=== PATIENT | female | born 1995 | race Caucasian/White ===

== ENCOUNTER 2025-01-17 14:07 | Outpatient (RCR) | payer MEDICAID, SELFPAY ==
--- NOTE | 2025-01-10 14:13 | XR_ITS ---
Examination: Biophysical profile, ultrasound Date and time of exam: January 10, 2025 1420 hours INDICATIONS: Diagnosis maternal obesity Technique: Multiple transabdominal sonographic images of the pelvis abdomen obtained. Attention is directed to the breathing movement, gross body movement, amniotic fluid volume and tone. Findings: Amniotic fluid index 11.3 cm Total biophysical profile is 8 of 8. breathing movement is 2. Gross body movement is 2. tone is 2. Qualitative amniotic fluid volume is 2 Impression: Biophysical profile is 8 of 8.
[2025-01-10 14:40] VITALS: BP 137/91; PULSE 100; RESP 16; TEMP 36.8
--- NOTE | 2025-01-17 14:12 | XR_ITS ---
Examination: Biophysical profile, ultrasound Date and time of exam: January 17, 2025 1419 hours INDICATIONS: Diagnosis maternal obesity Technique: Multiple transabdominal sonographic images of the pelvis abdomen obtained. Attention is directed to the breathing movement, gross body movement, amniotic fluid volume and tone. Findings: Amniotic fluid index 5.9 cm Total biophysical profile is 8 of 8. breathing movement is 2. Gross body movement is 2. tone is 2. Qualitative amniotic fluid volume is 2 Impression: Biophysical profile is 8 of 8.
[2025-01-17 15:03] VITALS: BP 131/73; PULSE 94; RESP 16; TEMP 36.7
== END 2025-01-17 23:59 | disposition home or self-care (01) ==
LOC: S4S1 14:07
PROVIDERS: PCP Family Medicine; Referring Provider Advanced Practice Midwife; Visit Provider Advanced Practice Midwife
DX: O99.213 Obesity complicating pregnancy, third trimester (principal); O09.93 Supervision of high risk pregnancy, unspecified, third trimester; E66.9 Obesity, unspecified; Z3A.38 38 weeks gestation of pregnancy
CPT/HCPCS: 59025; 76819

== ENCOUNTER 2025-01-19 08:07 | Observation (INO) | payer MEDICAID, SELFPAY ==
[2025-01-19] VITALS (10 sets, daily range): BP systolic 132–144; BP diastolic 74–84; PULSE 92–109; RESP 18–98; TEMP 36.6; O2SAT 97–98; BMI 51.0
--- NOTE | 2025-01-19 08:34 | XR_ITS ---
Examination: age Limited TECHNIQUE: Limited transabdominal sonographic images pelvis Exam date and time: January 19, 2025 1032 hours INDICATIONS: Amniotic fluid index 5.9 cm on ultrasound January 17, 2025 FINDINGS: Amniotic fluid index 6.1 cm Cardiac motion 150 BPM IMPRESSION: Amniotic fluid index 6.1 cm
== END 2025-01-19 11:09 | disposition home or self-care (01) ==
PROVIDERS: Admitting Provider Student in an Organized Health Care Education/Training Program; Visit Provider Student in an Organized Health Care Education/Training Program
DX: Z34.03 Encounter for supervision of normal first pregnancy, third trimester (principal); Z3A.38 38 weeks gestation of pregnancy
CPT/HCPCS: 59025; 59899; 76815

== ENCOUNTER 2025-01-27 07:53 | Outpatient (CLI) | payer SELFPAY ==
[2025-01-27 07:59] VITALS: BP 130/77; PULSE 91
[2025-01-27 08:15] VITALS: BP 130/77; PULSE 91; RESP 18; RESP 98; TEMP 36.5
[2025-01-27 08:16] VITALS: BMI 51.3
== END 2025-01-27 08:30 | disposition home or self-care (01) ==
LOC: S4S1 07:53 → S4SX 07:54
PROVIDERS: Referring Provider Obstetrics & Gynecology; Visit Provider Obstetrics & Gynecology
DX: Z34.03 Encounter for supervision of normal first pregnancy, third trimester (principal); Z36.9 Encounter for antenatal screening, unspecified; Z3A.39 39 weeks gestation of pregnancy
CPT/HCPCS: 59025

== ENCOUNTER 2025-01-31 10:55 | Inpatient (IN) | payer MEDICAID, SELFPAY ==
[2025-01-31] VITALS (44 sets, daily range): BP systolic 122–139; BP diastolic 63–83; PULSE 74–122; RESP 18; TEMP 36.6–36.7; O2SAT 94–100; BMI 55.5
[2025-01-31 12:11] LABS: Basophils % (Auto) 0 % (0-2.5); Eosinophils # (Auto) 0.1 Thou/mm3 (0.0-0.5); Eosinophils % (Auto) 1 % (0-10); Hematocrit 35.7 % (36.0-46.0); Hemoglobin 12.1 g/dL (12.0-16.0); Immature Granulocytes % (Auto) 1 % (0-0); Immature Granulocytes Auto 0.11 Thou/mm3 (0.00-0.00); Lymphocytes # (Auto) 1.7 Thou/mm3 (1.0-4.8); Lymphocytes % (Auto) 16 % (10-50); Mean Corpuscular HGB Conc 33.9 g/dl (31.0-37.0); Mean Corpuscular Hemoglobin 30.2 pg (25.0-35.0); Mean Corpuscular Volume 89 fL (80-100); Monocytes # (Auto) 0.3 Thou/mm3 (0.0-0.8); Monocytes % (Auto) 3 % (0-12); Neutrophils # (Auto) 8.4 Thou/mm3 (1.8-7.7); Neutrophils % (Auto) 79 % (37-80); Nucleated Red Blood Cell % 0 /100 WBC (0); Platelet Count 208 Thou/mm3 (140-440); RDW Standard Deviation 47.4 fL (36.4-46.3); Red Blood Count 4.01 Miln/mm3 (4.00-5.20); White Blood Count 10.7 Thou/mm3 (3.6-11.0)
[2025-01-31] MEDS: MISOPROSTOL 50 mCg TABLET 25 MCG VAGINAL (12:23)
[2025-01-31 12:49] LABS: Syphilis Nonreactive (Nonreactive)
--- NOTE | 2025-01-31 14:41 | ESHP_ITS ---
Documentation for date of: 01/31/25 OB Labor/Induct. HPI History of Present Illness Chief complaint: presents for IOL for elevated BMI : 1 Para: 0 Term pregnancies: 0 pregnancies: 0 Living children: 0 History of Abortions: Spontaneous and Elective: 0 History of Vaginal deliveries: 0 History of sections: No ART: 01/29/25 Gestational Age (weeks): 40 Gestational Age (days): 2 Indication for induction: other (elevated BMI) History of present illness: Meme is a 29yo G1 at 40w2d presenting for induction of labor due to elevated BMI of 49, as recommended by M. IOL was attempted 01/23 to 01/24 with cervidil and 4 doses of cytotec, but there was no progression and she elected to go home and try again today. Was given option for at that time and declined. She has no complaints today. No regular/painful ctx. No lof or vb. She notes normal movement. History of Present Dating criteria: based on 2nd trimester US only Adequate Care: No (Late to care at 20 weeks) Narrative: BMI 49 at initiation of care, taking ASA 81mg PO QD Late to care at 20 weeks 1hr glucola elevated (183), but only 1 elevation on 3hr GTT. HgbA1c 5.7. Anemia, Hgb 10.9 Hx of mild intermittent asthma, no meds currently Rubella non-immune GBS positive on urine Labs Maternal Blood Type: O Pos Labs: Positive: Group Beta Strep and Negative: RPR, Hepatitis B, Rubella Titre, HIV, Chlamydia and Gonorrhea Review of Systems Review of Systems Narrative Review of Systems: Review of Systems Systems Reviewed: All systems reviewed, normal except as documented Constitutional Constitutional: Denies body ache(s), Denies chills, Denies fever(s) and Denies headache(s) ENT Ears, Nose, Mouth, and Throat: Denies headache(s) and Denies vertigo Cardiovascular Cardiovascular: Denies chest pain, Denies palpitations, Denies dyspnea and Denies syncope Respiratory Respiratory: Denies cough, Denies dyspnea Gastrointestinal Gastrointestinal: Denies nausea and Denies vomiting Neurologic Neurologic: Denies convulsions, Denies headache(s), Denies other visual disturbances, Denies syncope and Denies vertigo Past Medical History Family History OTHER FAMILY HX: mother from breast cancer Surgical History SURGICAL: Negative Section Social History SOCIAL: No tobacco/ETOH/illicit drug use Past Medical History Comments PMH COMMENT: BMI 49 at initiation of care, HgbA1c 5.7. Hx of mild intermittent asthma, no meds currently Meds Home Medications and Allergies Home Medications ?Medication ?Instructions ?Recorded ?Confirmed ?Type ferrous sulfate 325 mg (65 mg 325 mg PO BID 01/19/25 0 01/31/25 History iron) tablet vit no.95-ferrous 1 tab PO DAILY 01/19/2506/19 History fumarate 28 mg-folic acid 800 mcg tablet () Allergies Allergy/AdvReac Type Severity Reaction Status Date / Time No Known Allergies Allergy Verified 01/31/25 11:37 OB Exam Physical Exam Vital signs: Temp Pulse Resp BP Pulse Ox 97.9 F 76 18 126/71 96 01/31/25 11:28 01/31/25 14:15 01/31/25 11:28 01/31/25 14:15 01/31/25 13:20 Narrative: General: well developed, well nourished, no acute distress, conversant Cardiac: normal heart rate Lungs: breathing without distress Abdomen: soft, gravid, obese, non-tender, no rebound or guarding Extremities: trace edema BLE Detailed Labor and Delivery Exam Dilation (cm): 1 Effacement (%): 0 Cervix position: posterior station: -3 Consistency: medium Presentation: Vertex Membranes: intact monitor accelerations: 15x15 monitor decelerations: None halfway variability: Moderate (11-25) Contraction frequency (min): no regular ctx pattern OB Results Labs 01/31/25 11:35 Labs: Short CBC 01/31/25 Range/Units 11:35 WBC 10.7 (3.6-11.0) Thou/mm3 Hgb 12.1 (12.0-16.0) g/dL Hct 35.7 L (36.0-46.0) % Plt Count 208 (140-440) Thou/mm3 OB Assessment & Plan Assessment and Plan (1) Encounter for induction of labor: Status: Acute Assessment and plan: Meme is a 29yo G1 at 40w2d presenting for induction of labor due to elevated BMI of 49, as recommended by [facility]. IOL was attempted 01/23 to 01/24 with cervidil and 4 doses of cytotec, but there was no progression and she elected to go home and try again today. Was given option for at that time and declined. SCE: 1/thick/-3, vertex. Membranes intact. Vitals wnl, benign exam. Reassuring assessment overall. Patient counseled on IOL methods and amenable to all. Cook see cervical balloon placed with 60cc NS in the intra-uterine balloon only and 25mcg cytotec placed PV. Well tolerated. care: She received care at [facility] with YANELI Razo and also saw [facility] records in chart reviewed. PMhx/PNC significant for: BMI 49 at initiation of care, taking ASA 81mg PO QD Late to care at 20 weeks 1hr glucola elevated (183), but only 1 elevation on 3hr GTT. HgbA1c 5.7. Anemia, Hgb 10.9 Hx of mild intermittent asthma, no meds currently Rubella non-immune GBS positive on urine Plan: -Admit to L&D -Establish IV, routine labs -CEFM -Regular diet [id number], then clear liquid diet in labor -Counseled/consented re: iol and -GBS status: positive. IV PCN per protocol once see bulb comes out. -Will await cervical see balloon falling out, repeat cytotec q4hr as contraction pattern allows -Anticipate -Safe to proceed Tawny Tinoco MD (2) BMI 50.0-59.9, adult: Status: Acute
[2025-01-31] MEDS: fentaNYL CIT INJ 50 mCg/ML AMP 2ML 100 MCG IV (17:29)
[2025-01-31] MEDS: RINGERS LACTATED 1000 ML 1,000 ML 100 ML IV (17:40)
[2025-01-31] MEDS: OXYTOCIN in NS 30 units 30 UNIT/500 ML BAG IV (18:49)
[2025-01-31] MEDS: DINOPROSTONE 10 MG VAG.SUPP VAGINAL (22:43)
[2025-02-01] VITALS (180 sets, daily range): BP systolic 111–161; BP diastolic 56–116; PULSE 80–125; RESP 14–20; TEMP 36.6–37.7; O2SAT 77–100
[2025-02-01] MEDS: fentaNYL CIT INJ 50 mCg/ML AMP 2ML 100 MCG IV ×2 (00:20→06:30)
[2025-02-01] MEDS: MISOPROSTOL 50 mCg TABLET 25 MCG VAGINAL (02:26)
--- NOTE | 2025-02-01 03:15 | PD.LDPN ---
Documentation for date of: 02/01/25 OB Labor Progress Note Pelvic Exam Dilation (cm): 4 Effacement (%): 50 station: -3 Amniotic membrane status: Intact Contractions Contraction frequency: irregular ctx Assessment and Plan Comments: Intrapartum Note Patient doing well, not feeling ctx strongly. Pitocin was started with cervical see balloon and titrated up to 3mu, but given need for further effacement, pitocin was stopped and cervidil placed. Cervidil came out on its own 3 hours after it was placed. Vitals wnl, afebrile Cat I FHRT Irregular ctx SCE: 50/-2, mid/soft. Cytotec 25mcg PV placed. Will re-check SCE in approx 4 hours and either re-dose cytotec vs re-initiate pitocin. Intermittent FHR monitoring per protocol Safe to proceed Tawny Tinoco MD
[2025-02-01] MEDS: Ampicillin Inj 2,000 MG in SODIUM CHLORIDE 0.9% (POP) 100 ML 200 MG IV (06:09)
[2025-02-01] MEDS: OXYTOCIN in NS 30 units 30 UNIT/500 ML BAG IV (07:30)
[2025-02-01] MEDS: RINGERS LACTATED 1000 ML 1,000 ML 100 ML IV ×3 (09:10→12:56)
[2025-02-01] MEDS: Ampicillin Inj 1,000 MG in SODIUM CHLORIDE 0.9% (Popper) 50 ML 50 MG IV ×3 (10:15→18:28)
--- NOTE | 2025-02-01 13:21 | ESPR_ITS ---
Documentation for date of: 02/01/25 OB Labor Progress Note Pelvic Exam Dilation (cm): 5 Effacement (%): 60 station: -3 Amniotic membrane status: Intact Contractions Monitor mode: Internal Contraction frequency: ctx q4-5 min Status status: Category l Assessment and Plan Comments: Intrapartum Note Meme recently received epidural. It was functioning really well initially and then she changed position and started feeling contractions strongly again. Pitocin at 3mu. During the re-positioning FSE connection was lost and when I went to see her, RN was trying a different cable to see if connection could be regained. Despite trying numerous things, could not get it to adequately function again, so I replaced the FSE. SCE: /-3. head is above the cervix, not well applied. Clear fluid. Plan to continue to titrate IV pitocin to adequate MVUs Continue position changes to try to get fetus to descend If unable to get patient good pain control with epidural having position changes, will have MULTI SITE LEASING CONSULTANT re-assess CEFM Answered all questions for patient and family Safe to proceed Tawny Tinoco MD
--- NOTE | 2025-02-01 19:04 | PD.LDPN ---
Documentation for date of: 02/01/25 OB Labor Progress Note Pelvic Exam Dilation (cm): 5-6 Effacement (%): 60 station: -3 Amniotic membrane status: Intact Contractions Monitor mode: Internal Contraction frequency: ctx q4-5 min Status status: Category l Assessment and Plan Comments: Decision for section I was called by RN regarding recent SCE- similar to exam 2 hours ago. Meme has had adequate MVUs for the past 6 hours with no meaningful cervical change and no further descent. She had a recent temp of 100F, no or maternal tachycardia. At this time she does NOT meet criteria for chorioamnionitis, though she has had ROM since 0500 this morning, >12 hours. FHRT remains Cat I. I came to bedside and repeated SCE. It is exactly the same as my previous exam earlier in the day. I discussed diagnosis of arrest of dilation with patient and she is amenable to proceeding with section after discussing the pros and cons of vs allowing another hour or two of IV pitocin. She is feeling pain through her epidural again, so STRATEGIC DEBRIEFING SPECIALIST was called to assess. I counseled/consented Meme re: section. Discussed all r/b/a to include: bleeding (possible need for blood transfusion), infection (subcutaneous, deeper layers or uterine with possible need for prolonged admission or re-admission for IV antibiotics, I&D with wound packing, etc), injury to nearby structures such as bladder, bowel, ureters, blood vessels, nerves with possible need for re-operation, pain, injury to baby, hysterectomy, DVT/PE, . Answered all questions to patient and her support person's satisfaction. IV abx ppx: ancef 3g IV x1 and azithromycin 500mg IV x1 Nursing and anesthesia team aware of plan for section. Will proceed to OR when team is ready. Tawny Tinoco MD
[2025-02-01] MEDS: ceFAZolin/D5W 2 GM IV 2 GM/100 ML BAG IV (19:14)
[2025-02-01] MEDS: FAMOTIDINE INJ 10 MG/ML VIAL 2 ML 20 MG IV (19:14)
[2025-02-01] MEDS: CITRIC ACID/SODIUM CITR 15 ML UDC (BICITRA) 30 ML PO (19:15)
[2025-02-01] MEDS: ceFAZolin/D5W 1 GM IVPB 1 GM/50 ML BAG IV (19:17)
[2025-02-01] MEDS: MISOPROSTOL 200 mCg TABLET 800 MCG PR (20:45)
[2025-02-01] MEDS: OXYTOCIN in NS 20 units 20 UNIT/1,000 ML BAG 125 UNIT IV (20:50)
--- NOTE | 2025-02-01 20:53 | PD.GYNPROC ---
Operative Note - CORRECTIONS SPECIALIST Procedure Date of procedure: 02/01/25 Procedure Performed: Primary low transverse section Indication: Meme is a 29yo with SIUP at 40w3d undergoing IOL for obesity, starting BMI 49. She had a failed induction one week prior. On this occasion, she progressed with cervical see bulb, vaginal cytotec, brief (3hr) cervidil, and IV pitocin all the way to 6cm. She experienced SROM. Despite adequate MVUs, she experienced arrest of dilation at 5-6cm for > 6 hours with no appropriate descent. She was counseled on recommendation for delivery and she was amenable. Pre-Op diagnosis: SIUP at 40w3d Arrest of dilation Starting BMI 49, taking ASA Late to care at 21 weeks Hx of asthma as a child, no meds currently Anemia in , taking ferrous sulfate GBS positive on urine in early Post-Op diagnosis: SIUP at 40w3d Arrest of dilation Starting BMI 49, taking ASA Late to care at 21 weeks Hx of asthma as a child, no meds currently Anemia in , taking ferrous sulfate GBS positive on urine in early Anesthesia type: Epidural (and sedation) Procedure description: After obtaining informed consent, the patient was taken to the operating room. There was reassuring heart rate tracing prior. She had epidural in place. A see catheter was in place and bilateral sequential compression devices were placed. She was then prepped and draped in the normal sterile fashion in the dorsal supine position with left lateral tilt. A timeout was performed to confirm patient name, date of , procedure and indication. The team was in agreement. Spinal anesthesia was found to be adequate using an Allis clamp. Anceph 3g IV x1 and azithromycin 500mg IV x1 were given for prophylaxis. A Pfannenstiel skin incision was then made with the scalpel and carried through to the underlying layer of fascia. The fascia was incised in the midine and the incision was extended laterally with the Rogers scissors. The superior and inferior aspects of the fascial incision were then grasped with the Guillermo clamps, elevated and the underlying rectus muscles were dissected off bluntly and sharply. The peritoneum was entered digitally and the rectus muscles were then in the midline. The peritoneal incision was then extended superiorly and inferiorly with good visualization of the bladder. An Torey retractor was placed. The lower uterine segment was scored in a transverse fashion with the scalpel. The uterus was then entered bluntly and the incision was extended with traction with clear amniotic fluid noted. The 's head was elevated to the level of the incision. Fundal pressure was applied. The head was delivered atraumatically in the OA position. The anterior shoulder, posterior shoulder and corpus were delivered with gentle rocking motion. The nose and mouth were suctioned with bulb suction and cord was clamped x2 and cut. Infant was vigorous. The was handed off to the awaiting nursing team. Cord blood obtained for typing. The placenta was then removed with uterine massage and cord traction. The uterus was left in situ and cleared of all clot and debris. The uterine incision was repaired with 0-vicryl suture in a running locking fashion. A second layer using O-vicryl was used to closed the hysterotomy incision in an imbricating fashion. The uterine incision was inspected and hemostasis was noted. In addition to standard IV pitocin, patient received TXA 1g IV x2 and methergine 0.2mg IM x1 with good tone achieved and maintained. The gutters were cleared of all clot. Torey retractor was removed. The peritoneum was closed using a 3-0 vicryl suture in running fashion. The rectus muscles were inspected and noted to be hemostatic. The fascia was reapproximated with 0-Vicryl suture in a running fashion. The subcutaneous tissue was then copiously irrigated. Jamar's fascia was reapproximated in 2 layers using 3-0 vicryl suture in a running fashion. At that point FLOORWORKER LASTING then sutured the skin with 4-0 monocryl suture in running subcuticular fashion. The incision was cleaned with a wet lap and dried with a dry lap. Uhkwdilur-[id number]-wexa bandage was applied overlying the incision and activated according to supervisor cooperage shop instructions. Fundus was firm at the umbilicus. Sponge, lap and needle counts were correct x2. RN placed cytotec 800mcg UT at end of procedure for continued prophylaxis against bleeding. The procedure was without complications and the patient tolerated the procedure well. She was taken to recover further on Labor and Delivery, in stable condition. Fluids: crystalloid Fluid amount (mL): 3,000 Urine output (mL): 150 Specimen: other (placenta and cord not sent to pathology) Estimated blood loss (ml): 735 Findings: Female in cephalic presentation, apgars 9/9, weight [id number]. TOB 1951. Normal appearing uterus, fallopian tubes and ovaries. Complications: none Surgical staff KRYSTYNA Dickinson Operation Date: 02/01/25 19:43 <No data on this case meets the specified criteria> Diagnosis Discharge Diagnosis (1) Arrest of dilation, delivered, current hospitalization: Status: Acute (2) delivery delivered: Status: Acute (3) BMI 50.0-59.9, adult: Status: Acute Problem List Completed Was Problem List Reviewed/Reconciled?: Yes
[2025-02-01] MEDS: KETOROLAC INJ 30 MG/ML VIAL IVP (23:13)
[2025-02-02] VITALS (7 sets, daily range): BP systolic 111–149; BP diastolic 72–98; PULSE 86–97; RESP 16–20; TEMP 36.4–36.9; O2SAT 94–98
[2025-02-02] MEDS: RINGERS LACTATED 1000 ML 1,000 ML 100 ML IV (04:45)
[2025-02-02 05:17] LABS: Basophils % (Auto) 0 % (0-2.5); Eosinophils % (Auto) 0 % (0-10); Hemoglobin 10.4 g/dL (12.0-16.0); Immature Granulocytes % (Auto) 1 % (0-0); Lymphocytes # (Auto) 1.7 Thou/mm3 (1.0-4.8); Lymphocytes % (Auto) 10 % (10-50); Mean Corpuscular HGB Conc 33.5 g/dl (31.0-37.0); Mean Corpuscular Volume 92 fL (80-100); Monocytes # (Auto) 0.8 Thou/mm3 (0.0-0.8); Monocytes % (Auto) 4 % (0-12); Neutrophils # (Auto) 14.7 Thou/mm3 (1.8-7.7); Neutrophils % (Auto) 85 % (37-80); Nucleated Red Blood Cell % 0 /100 WBC (0); Platelet Count 158 Thou/mm3 (140-440); RDW Standard Deviation 50.2 fL (36.4-46.3); Red Blood Count 3.36 Miln/mm3 (4.00-5.20); White Blood Count 17.4 Thou/mm3 (3.6-11.0)
[2025-02-02] MEDS: KETOROLAC INJ 30 MG/ML VIAL IVP ×3 (05:22→18:14)
[2025-02-02] MEDS: DiphenhydrAMINE INJ 50 MG/ML VIAL 25 MG IV (07:48)
[2025-02-02] MEDS: DOCUSATE SOD 100 MG CAPSULE PO (07:50)
[2025-02-02] MEDS: FERROUS SULF 325 MG TABLET PO ×2 (07:51→21:43)
--- NOTE | 2025-02-02 11:51 | PD.LDPPPRG ---
Subjective Subjective Interval history: Patient doing well overall. Pain is controlled. She is ambulating no lightheadedness/dizziness. Hawley removed recently, awaiting due to void. Tolerating regular diet without nausea/vomiting this morning. No fevers/chills, no CP/SOB. Exam Vital Signs Temp Pulse Resp BP Pulse Ox O2 Del Method 97.7 F 88 20 119/72 95 Room Air 02/02/25 07:30 02/02/25 07:30 02/02/25 07:30 02/02/25 07:30 02/02/25 07:30 02/02/25 07:30 Narrative Exam General: well developed, well nourished, no acute distress, conversant Cardiac: normal heart rate Lungs: breathing without distress Abdomen: soft, post-gravid, non-tender, no rebound or guarding, pfannenstiel incision covered by dry/clean/intact prineo bandage. Incision well reapproximated. No erythema, drainage or induration. Fundus firm at u-2cm. Extremities: no pain with palpation of calves, trace edema of BLE Objective Labs 02/02/25 04:51 Labs: Laboratory Results - last 24 hr 02/02/25 04:51 WBC 17.4 H D RBC 3.36 L Hgb 10.4 L Hct 31.0 L MCV 92 MCH 31.0 MCHC 33.5 RDW Std Deviation 50.2 H Plt Count 158 D Neut % (Auto) 85 H Lymph % (Auto) 10 [place] % (Auto) 4 Eos % (Auto) 0 Baso % (Auto) 0 Neut # (Auto) 14.7 H Lymph # (Auto) 1.7 [place] # (Auto) 0.8 Eos # (Auto) 0.0 Baso # (Auto) 0.0 Immature Gran # (Auto) 0.10 H Absolute Nucleated RBC 0.00 Immature Gran % 1 H Nucleated RBC % 0 Assessment & Plan Problem List (1) Arrest of dilation, delivered, current hospitalization: Status: Acute Assessment and plan: Meme is a 29yo [id number] s/p uncomplicated PLTCS for arrest of dilation when undergoing IOL, doing well on POD 1. Vitals wnl, benign exam. Hemodynamically stable with no evidence of infection. H/H 10.4 from 12.1. EBL 735ml. complicated by: BMI 49 at initiation of care, taking ASA 81mg PO QD Late to care at 20 weeks 1hr glucola elevated (183), but only 1 elevation on 3hr GTT. HgbA1c 5.7. Anemia, Hgb 10.9 Hx of mild intermittent asthma, no meds currently Rubella non-immune GBS positive on urine Plan: -Continue routine /post-op care -Awaiting due to void -Regular diet -Toradol 30mg IV Q6hr x4 doses, then motrin 800mg PO Q8hr. For breakthrough: norco 5/325mg PO Q6hr prn pain -Encourage ambulation and use of IS -Anticipate discharge home tomorrow if meeting all milestones (2) delivery delivered: Status: Acute (3) BMI 50.0-59.9, adult: Status: Acute Time Spent With Patient Time: Total time spent is greater than 50% in coordination of care (as documented) at patient's floor/unit and/or counseling patient:
--- NOTE | 2025-02-02 12:14 | PC.SS ---
SS conducted bedside contact with the patient to address nursing referral indicating patient possessed history of anxiety.? SS introduced self and role.? SS discussed with patient basis of referral.? SS asked for permission to speak in front of it infrastructure consultant.? Patient agreed.? Patient confirmed she had anxiety 4-5 years ago.? Patient was on medication at that time.? She no longer takes medication or has feelings of anxiety.? Currently, no impairments, no other history of documented mental health. Annemarie HOLMAN, resides in the home. This is patient?s first child. , Sofie, was born yesterday, via . wafer slicer Elaine Razo provided care.? Patient was consistent with . Patient plans on breast feeding. Patient is aligned with SNAP and WIC. Patient does not possess [place] assistance. Patient denies history of drug/alcohol abuse, domestic violence. Patient describes possessing positive support from family. Patient has all resources to include: car seat, clothing and infant supplies.? business services manager provided resources to include:? [employer], Warm Line and community numbers. No further intervention required at this time, clinical social work aide will be available to address any further concerns. SS updated bedside nurse. Patient to discharge home this morning.
[2025-02-02] MEDS: DIPHTH,PERTUSS(ACELL),TET VAC 0.5 ML SYR- ADULT IMi (15:32)
[2025-02-02] MEDS: IBUPROFEN TAB 400 MG TABLET 800 MG PO (21:43)
[2025-02-03 04:51] VITALS: BP 98/60; PULSE 81; RESP 18; TEMP 36.9; O2SAT 97
[2025-02-03] MEDS: IBUPROFEN TAB 400 MG TABLET 800 MG PO ×2 (05:48→16:07)
[2025-02-03 08:10] VITALS: BP 127/80; PULSE 90; RESP 20; TEMP 36.4; O2SAT 97
[2025-02-03] MEDS: DOCUSATE SOD 100 MG CAPSULE PO (08:22)
[2025-02-03] MEDS: FERROUS SULF 325 MG TABLET PO (08:22)
--- NOTE | 2025-02-03 09:08 | PD.LDDS ---
DS: Providers Provider Date of admission: 01/31/25 10:55 Primary care physician: Physician No Primary/Family Admitting Provider: Elaine Razo CNM Attending Provider on Admission: Elaine Razo CNM Consults: 02/01/25 20:48 Referral Routine Comment: Attending Provider on DC: Tawny Tinoco MD Discharging Provider: Tawny Tinoco MD DS: Diagnosis Discharge Diagnosis (1) delivery delivered: Status: Acute (2) Arrest of dilation, delivered, current hospitalization: Status: Acute (3) BMI 50.0-59.9, adult: Status: Acute (4) Encounter for induction of labor: Status: Acute Problem List Completed Was Problem List Reviewed/Reconciled?: Yes Summary/Hosp Course Brief History: Meme is a 29yo [id number] s/p uncomplicated PLTCS for arrest of dilation when undergoing IOL, doing well on POD 2. Vitals wnl, benign exam. Hemodynamically stable with no evidence of infection. H/H 10.4 from 12.1. EBL 735ml. She has had an uncomplicated course, meeting all milestones and feels ready for discharge home. She is ambulating without lightheadedness, tolerating regular diet no n/v, spontaneously voiding without issue. (Did not meet due to void with first urination, so had straight cath performed, but after that has been voiding normally.) She has no chest pain or shortness of breath. No fevers or chills. Minimal, appropriate discomfort. complicated by: BMI 49 at initiation of care, taking ASA 81mg PO QD Late to care at 20 weeks 1hr glucola elevated (183), but only 1 elevation on 3hr GTT. HgbA1c 5.7. Anemia, Hgb 10.9 Hx of mild intermittent asthma, no meds currently Rubella non-immune GBS positive on urine Peripartum Data Procedures: Procedures Operation Date: 02/01/25 19:43 Actual Procedure Side Surgeon p in OB Not Applicable Tawny Tinoco MD Status at Discharge Functional status at discharge: independent ambulation Overall status at discharge: patient is back to baseline Time Spent with Patient Time attestation: Total time spent providing and/or coordinating discharge services: Exam Vital Signs Temp Pulse Resp BP Pulse Ox O2 Del Method 98.4 F 81 18 98/60 97 Room Air 02/03/25 04:51 02/03/25 04:51 02/03/25 04:51 02/03/25 04:51 02/03/25 04:51 02/03/25 04:51 Narrative Exam General: well developed, well nourished, no acute distress, conversant Cardiac: normal heart rate Lungs: breathing without distress Abdomen: soft, post-gravid, non-tender, no rebound or guarding, pfannenstiel incision covered by dry/clean/intact prineo bandage. Incision well reapproximated. No erythema, drainage or induration. Fundus firm at u-2cm. Extremities: no pain with palpation of calves, trace edema of BLE Discharge Plan Plan Patient Disposition: HOME (Self Care) Patient condition on transfer: Stable Prescriptions/Referrals Prescriptions/Med Rec: New hydrocodone-acetaminophen 5-325 mg Tablet 1 tab PO Q6H MDD 4 tablets PRN (Reason: Patient rated pain 7 to 8) 10 Days Qty: 12 0RF ibuprofen 800 mg tablet 800 mg PO Q8HR 10 Days Qty: 30 0RF ferrous sulfate 325 mg (65 mg iron) tablet 325 mg PO QDAY Qty: 30 0RF polyethylene glycol 3350 17 gram powder in packet 17 g PO QDAY Qty: 14 0RF Discontinued acetaminophen [Tylenol] 325 mg capsule 650 mg PO QID PRN (Reason: fever or pain) Qty: 30 0RF ferrous sulfate 325 mg (65 mg iron) tablet 325 mg PO BID Patient Comments: TAKE 1 TABLET BY MOUTH TWICE A DAY No Action PNV cmb#95-ferrous fumarate-FA [] 28 mg iron- 800 mcg tablet 1 tab PO DAILY Patient Comments: TAKE 1 TABLET BY MOUTH EVERY DAY FOR 30 DAYS Referrals: No Primary/Family,Physician [Primary Care Provider] - Patient/Caregiver Discharge Instructions Discharge Activity: activity as tolerated and other Other Discharge Activity Instructions:: vaginal rest and no heavy lifting more than 10 pounds for 6 weeks. no [address] while taking narcotic. keep incision clean and dry, do not submerge. Other Discharge Diet Instructions: regular diet Education Materials: C Section Dc Print Language: Tristanian Activity Restrictions/Additional Instructions: follow up in 1 week in the obgyn office for incision check, call for appointment Stand Alone Forms: Sarah Award Info., Patient Portal Info Letter Vaccines Vaccines Given During Stay: MMR and TDaP Discharge Order Discharge Orders: Discharge (Routine); Ordered 02/03/25 Ordered By: Tawny Tinoco Planned Discharge Date 02/03/25
[2025-02-03 16:00] VITALS: BP 123/83; PULSE 89; RESP 16; TEMP 36.5; O2SAT 98
[2025-02-03] MEDS: MEASLES, MUMPS & RUBELLA VACC 0.5 ML VIAL SCi (16:14)
== END 2025-02-03 17:50 | disposition home or self-care (01) | DRG 540 ==
LOC: S4SX 02-01 08:47 → S4NX 02-01 19:38
PROVIDERS: Obstetrics & Gynecology; Admitting Provider Advanced Practice Midwife; Visit Provider Advanced Practice Midwife
PROC: 10D00Z1 Extraction of Products of Conception, Low, Open Approach (ICD-10-PCS; CPT 59514; principal; 2025-02-01 19:00)
DX: O48.0 Post-term pregnancy (principal); Z37.0 Single live birth; Z3A.40 40 weeks gestation of pregnancy; J45.20 Mild intermittent asthma, uncomplicated; O99.52 Diseases of the respiratory system complicating childbirth; O99.214 Obesity complicating childbirth; O99.824 Streptococcus B carrier state complicating childbirth; O99.02 Anemia complicating childbirth; O62.0 Primary inadequate contractions; Z23 Encounter for immunization; Z79.82 Long term (current) use of aspirin
CPT/HCPCS: 36415; 59409; 85025; 86780; 86850; 86900; 86901; 90707; 90715; 94762; A4649; J0290; J0689; J1200; J1885; J2210; J2250; J2274; J2371; J2405; J2590; J2704; J2795; J3010; J3490; J7050; J7120; S0191; A9270; J2270